=== PATIENT | female | born 1935 | race Caucasian/White ===

== ENCOUNTER 2017-02-21 10:55 | Inpatient (IN) | payer OTHER, MEDICAID ==
[~2017-02-21] VITALS: Ht 154.9 cm; Wt 62.2 kg
[~2017-02-21 10:55] MED LIST: ALENDRONAT70 MG/75 M PO; ARI10 PO; ARICEPT10 MG PO; BAY PO; CYCLOBENZAPRINE5 MG PO; ECO81 PO; FLOVENT DI100 MCG/A1 IH; FLUOXETINE40 MG PO; ISO10 PO; LIPI20 PO; NOR10 PO; NOR5 PO; PLA75 PO; PRI20 PO; PROAIR HFA8.5 GM IH; PROZ20 PO; TRE400 PO; ZES20 PO; ZESTRIL10 MG PO
[2017-02-21] MEDS ORDERED: HCTZ/LISINOPRIL1 TA2 PO (11:31)
[2017-02-21] MEDS ORDERED: PEPCID20 MG PO (11:33)
[2017-02-21] MEDS ORDERED: OXYBUTYNIN CHLOR5 MG PO (11:34)
[2017-02-21] MEDS ORDERED: CLONIDINE HCL0.1 MG PO (11:35)
[2017-02-21] MEDS ORDERED: VERAPAMIL HYDR240 MG PO (11:36)
[2017-02-21] MEDS ORDERED: TRAMADOL HCL50 MG PO (11:36)
[2017-02-21] MEDS ORDERED: ELOCON0.11 TOP (11:39)
[2017-02-21 12:43] LABS: BASOPHIL % 0.6 % (0-2)
[2017-02-21 12:55] LABS: RED CELL DISTRIBUTION WIDTH 15.6 % (11.5-14.5)
[2017-02-21 12:56] LABS: PLATELET COUNT 664 x10^3mcL (130-400)
[2017-02-21 13:07] LABS: CALCIUM 9.5 mg/dL (8.5-10.1); CARBON DIOXIDE 25.3 mmol/L (21-32); CHLORIDE SERUM 103 mmol/L (98-107); GLUCOSE SERUM 104 mg/dL (74-106); POTASSIUM SERUM 3.5 mmol/L (3.5-5.1); SODIUM SERUM 140 mmol/L (136-145)
[2017-02-21 13:11] LABS: ALKALINE PHOSPHATASE 67 U/L (46-116); ALT/SGPT 19 U/L (14-59); AST/SGOT 15 U/L (15-37); BILIRUBIN TOTAL 0.6 mg/dL (0.20-1.00); TOTAL PROTEIN, SERUM 7.3 g/dL (6.4-8.2)
[2017-02-21 13:12] LABS: ALBUMIN 2.6 g/dL (3.4-5.0)
[2017-02-21 15:05] VITALS: BP 213/67
[2017-02-21 15:44] LABS: T3 TOTAL 1.06 ng/mL
[2017-02-21 16:30] LABS: CHOLESTEROL/HDL RATIO 3.6; MAGNESIUM 1.5 mg/dL (1.8-2.4); PHOSPHOROUS 3.8 mg/dL (2.5-4.9)
[2017-02-21 17:00] VITALS: BP 158/69
[2017-02-21 20:10] LABS: FREE T4 1.7 ng/dL (0.76-1.46); FREE THYROXINE INDEX 3.7 ug/dL (1.4-4.5); T4(THYROXINE) 9.3 ug/dL (4.7-13.3)
[2017-02-21 21:15] VITALS: BP 121/51
[2017-02-22 05:49] VITALS: BP 118/64
[2017-02-22 07:26] LABS: RED CELL DISTRIBUTION WIDTH 15.8 % (11.5-14.5)
[2017-02-22 07:27] LABS: PLATELET COUNT 577 x10^3mcL (130-400)
[2017-02-22 07:36] LABS: CALCIUM 8.6 mg/dL (8.5-10.1); CARBON DIOXIDE 26.7 mmol/L (21-32); CHLORIDE SERUM 104 mmol/L (98-107); CREATININE SERUM 1.3 mg/dL (0.6-1.0); GLUCOSE SERUM 112 mg/dL (74-106); MAGNESIUM 2.4 mg/dL (1.8-2.4); POTASSIUM SERUM 3.5 mmol/L (3.5-5.1); SODIUM SERUM 139 mmol/L (136-145)
[2017-02-22 09:47] VITALS: BP 145/54
[2017-02-22 14:54] VITALS: BP 118/49
[2017-02-22 16:41] VITALS: BP 111/43
[2017-02-22 22:10] VITALS: BP 116/46
[2017-02-23 06:01] VITALS: BP 108/46
[2017-02-23 06:30] VITALS: BP 140/54
[2017-02-23 06:31] LABS: BASOPHIL % 1.1 % (0-2)
[2017-02-23 06:53] LABS: PLATELET COUNT 466 x10^3mcL (130-400); RED CELL DISTRIBUTION WIDTH 15.9 % (11.5-14.5)
[2017-02-23 07:06] LABS: CALCIUM 8.2 mg/dL (8.5-10.1); CARBON DIOXIDE 25.3 mmol/L (21-32); CHLORIDE SERUM 105 mmol/L (98-107); CREATININE SERUM 1.6 mg/dL (0.6-1.0); GLUCOSE SERUM 109 mg/dL (74-106); MAGNESIUM 1.9 mg/dL (1.8-2.4); PHOSPHOROUS 5.3 mg/dL (2.5-4.9); POTASSIUM SERUM 3.4 mmol/L (3.5-5.1); SODIUM SERUM 140 mmol/L (136-145)
[2017-02-23 10:18] VITALS: BP 110/59
[2017-02-23 16:53] VITALS: BP 134/50
[2017-02-23 18:40] LABS: UA SPECIFIC GRAVITY >=1.030 (1.005-1.035); microscopic required? YES; urine erythrocyte TRACE (NEGATIVE)
[2017-02-23 18:52] LABS: AMPHETAMINE QUAL UR NONE DETECTED (NEG <=1000)
[2017-02-23 21:50] VITALS: BP 141/69
[2017-02-24 17:15] VITALS: BP 203/92
[2017-02-24 18:25] LABS: CALCIUM 8.7 mg/dL (8.5-10.1); CARBON DIOXIDE 25.6 mmol/L (21-32); CHLORIDE SERUM 102 mmol/L (98-107); CREATININE SERUM 1.3 mg/dL (0.6-1.0); GLUCOSE SERUM 100 mg/dL (74-106); POTASSIUM SERUM 3.3 mmol/L (3.5-5.1); SODIUM SERUM 138 mmol/L (136-145)
[2017-02-24 18:30] LABS: BASOPHIL % 1.2 % (0-2); PLATELET COUNT 325 x10^3mcL (130-400)
[2017-02-24 18:32] LABS: RED CELL DISTRIBUTION WIDTH 16.1 % (11.5-14.5)
[2017-02-24 21:30] VITALS: BP 151/74
[2017-02-25 04:28] LABS: BASOPHIL % 1.2 % (0-2); PLATELET COUNT 332 x10^3mcL (130-400)
[2017-02-25 04:36] LABS: CALCIUM 8.6 mg/dL (8.5-10.1); CARBON DIOXIDE 26.6 mmol/L (21-32); CHLORIDE SERUM 102 mmol/L (98-107); CREATININE SERUM 1.3 mg/dL (0.6-1.0); GLUCOSE SERUM 93 mg/dL (74-106); POTASSIUM SERUM 3.3 mmol/L (3.5-5.1); SODIUM SERUM 139 mmol/L (136-145)
[2017-02-25 04:39] LABS: RED CELL DISTRIBUTION WIDTH 16.1 % (11.5-14.5)
[2017-02-25 05:30] VITALS: BP 138/55
[2017-02-25 05:57] VITALS: BP 151/74
[2017-02-25 11:06] VITALS: BP 193/78
[2017-02-25 17:01] VITALS: BP 130/57
[2017-02-25 19:30] VITALS: BP 101/50
[2017-02-26 05:14] LABS: BASOPHIL % 0.7 % (0-2); PLATELET COUNT 269 x10^3mcL (130-400)
[2017-02-26 05:16] LABS: CALCIUM 7.6 mg/dL (8.5-10.1); CARBON DIOXIDE 25.8 mmol/L (21-32); CHLORIDE SERUM 102 mmol/L (98-107); CREATININE SERUM 1.6 mg/dL (0.6-1.0); GLUCOSE SERUM 110 mg/dL (74-106); PHOSPHOROUS 5.4 mg/dL (2.5-4.9); POTASSIUM SERUM 3.4 mmol/L (3.5-5.1); SODIUM SERUM 135 mmol/L (136-145)
[2017-02-26 05:17] LABS: RED CELL DISTRIBUTION WIDTH 16.3 % (11.5-14.5)
[2017-02-26 08:51] VITALS: BP 115/48
[2017-02-26 17:42] VITALS: BP 174/70
[2017-02-26 18:05] VITALS: BP 162/53
[2017-02-26 18:07] LABS: BASOPHIL % 0.5 % (0-2); PLATELET COUNT 299 x10^3mcL (130-400)
[2017-02-26 18:09] LABS: RED CELL DISTRIBUTION WIDTH 16.2 % (11.5-14.5)
[2017-02-26 18:48] VITALS: BP 139/59
[2017-02-26 21:00] VITALS: BP 121/50
[2017-02-27 06:03] VITALS: BP 141/61
[2017-02-27 07:35] LABS: BASOPHIL % 0.6 % (0-2); PLATELET COUNT 293 x10^3mcL (130-400)
[2017-02-27 07:41] LABS: RED CELL DISTRIBUTION WIDTH 16.4 % (11.5-14.5)
[2017-02-27 07:49] LABS: CALCIUM 8.4 mg/dL (8.5-10.1); CARBON DIOXIDE 24.3 mmol/L (21-32); CHLORIDE SERUM 103 mmol/L (98-107); CREATININE SERUM 1.5 mg/dL (0.6-1.0); GLUCOSE SERUM 97 mg/dL (74-106); SODIUM SERUM 137 mmol/L (136-145)
[2017-02-27 07:51] VITALS: BP 154/60
[2017-02-27] MEDS ORDERED: LAC PO (10:19)
[2017-02-27] MEDS ORDERED: NEU100 PO (10:20)
[2017-02-27] MEDS ORDERED: ECO81 PO (10:21)
[2017-02-27 13:40] VITALS: BP 106/48
[2017-02-27 17:23] VITALS: BP 115/61
[2017-02-27 19:30] VITALS: BP 127/40
[2017-02-28 07:44] LABS: CALCIUM 7.8 mg/dL (8.5-10.1); CARBON DIOXIDE 23.5 mmol/L (21-32); CHLORIDE SERUM 106 mmol/L (98-107); CREATININE SERUM 1.4 mg/dL (0.6-1.0); GLUCOSE SERUM 93 mg/dL (74-106); POTASSIUM SERUM 3.9 mmol/L (3.5-5.1); SODIUM SERUM 138 mmol/L (136-145)
[2017-02-28 07:51] LABS: PLATELET COUNT 211 x10^3mcL (130-400)
[2017-02-28 07:58] LABS: RED CELL DISTRIBUTION WIDTH 16.3 % (11.5-14.5)
[2017-02-28 10:31] VITALS: BP 140/63
[2017-02-28 11:05] LABS: BAND NEUTROPHIL 5 % (0-10); MONOCYTE 4 % (0-7); SEGMENTED NEUTROPHILS 71 % (37-75); rbc morphology (normal/abnorm) NORMAL (NORMAL)
[2017-02-28 13:52] VITALS: BP 164/74
[2017-02-28 16:39] VITALS: BP 155/78
[2017-02-28 18:39] VITALS: BP 155/78
[2017-02-28] MEDS ORDERED: LAC PO (19:25)
[2017-02-28] MEDS ORDERED: Levofloxacin IV (19:28)
== END 2017-02-28 20:19 | DRG 602 ==
LOC: ED 10:55 → DU 13:53 → MU 02-24 07:29 → DU 02-24 19:32
PROVIDERS: Emergency Medicine; Family Medicine; Student in an Organized Health Care Education/Training Program
DX: L03.115 Cellulitis of right lower limb (principal); E43 Unspecified severe protein-calorie malnutrition; I21.A1 Myocardial infarction type 2; N17.0 Acute kidney failure with tubular necrosis; E87.1 Hypo-osmolality and hyponatremia; D68.69 Other thrombophilia; E11.42 Type 2 diabetes mellitus with diabetic polyneuropathy; E11.65 Type 2 diabetes mellitus with hyperglycemia; E11.51 Type 2 diabetes mellitus with diabetic peripheral angiopathy without gangrene; E86.0 Dehydration; I16.0 Hypertensive urgency; D64.9 Anemia, unspecified; N32.81 Overactive bladder; K21.9 Gastro-esophageal reflux disease without esophagitis; G30.9 Alzheimer's disease, unspecified; F02.80 Dementia in other diseases classified elsewhere, unspecified severity, without behavioral disturbance, psychotic disturbance, mood disturbance, and anxiety; F32.9 Major depressive disorder, single episode, unspecified; I25.10 Atherosclerotic heart disease of native coronary artery without angina pectoris; E87.6 Hypokalemia; E83.42 Hypomagnesemia; E83.39 Other disorders of phosphorus metabolism; Z96.651 Presence of right artificial knee joint; Z87.891 Personal history of nicotine dependence; Z68.25 Body mass index [BMI] 25.0-25.9, adult
CPT/HCPCS: 82962; 83880; 84439; 97110-GP; 97116-GP; 97530-GP; A9500; J0360; J1644; J1956; J2270; J2405; J2785; J3370; J3475; J3490; J7030; J7620; J8597; Q0092

== ENCOUNTER 2019-03-20 13:42 | Inpatient (IN) | payer OTHER, MEDICAID ==
[~2019-03-20] VITALS: Ht 154.9 cm; Wt 67.7 kg
[~2019-03-20 13:42] MED LIST changes: +CLONIDINE HCL0.1 MG PO; +ELOCON0.11 TOP; +HCTZ/LISINOPRIL1 TA2 PO; +LAC PO; +Levofloxacin IV; +NEU100 PO; +OXYBUTYNIN CHLOR5 MG PO; +PEPCID20 MG PO; +TRAMADOL HCL50 MG PO; +VERAPAMIL HYDR240 MG PO
[2019-03-20 14:25] LABS: BASOPHIL % 0.2 % (0-2); PLATELET COUNT 357 x10^3mcL (130-400)
[2019-03-20 14:27] LABS: RED CELL DISTRIBUTION WIDTH 15.3 % (11.5-14.5)
[2019-03-20 14:41] LABS: AST/SGOT 18 U/L (15-37); BILIRUBIN TOTAL 0.4 mg/dL (0.20-1.00); CARBON DIOXIDE 33.4 mmol/L (21-32); CHLORIDE SERUM 102 mmol/L (98-107); CREATININE SERUM 1.1 mg/dL (0.6-1.0); GLUCOSE SERUM 132 mg/dL (74-106); POTASSIUM SERUM 4.1 mmol/L (3.5-5.1); SODIUM SERUM 141 mmol/L (136-145); TOTAL PROTEIN, SERUM 6.1 g/dL (6.4-8.2)
[2019-03-20 14:42] LABS: ALKALINE PHOSPHATASE 70 U/L (46-116); ALT/SGPT 57 U/L (14-59)
[2019-03-20 15:04] LABS: CK-MB 1.5 ng/mL (0-3.6)
[2019-03-20 15:37] LABS: microscopic required? YES; urine erythrocyte NEGATIVE (NEGATIVE)
[2019-03-20 16:01] LABS: AMPHETAMINE QUAL UR NONE DETECTED (See below)
[2019-03-20] MEDS ORDERED: HYDRALAZINE HCL50 MG PO (18:15)
[2019-03-20] MEDS ORDERED: ARICEPT10 MG PO (18:15)
[2019-03-20] MEDS ORDERED: FENOFIBRATE50 MG PO (18:16)
[2019-03-20] MEDS ORDERED: DRAMAMINE LESS25 MG PO (18:16)
[2019-03-20] MEDS ORDERED: FLUOXETINE40 MG PO (18:17)
[2019-03-20] MEDS ORDERED: PROTONIX40 MG/Pac1 PO (18:18)
[2019-03-20] MEDS ORDERED: ADALAT CC60 MG PO (18:18)
[2019-03-20 19:00] LABS: CHOLESTEROL/HDL RATIO 3.2
[2019-03-20 19:08] VITALS: BP 144/68
[2019-03-20 19:19] VITALS: Ht 154.9 cm; Wt 67.7 kg
[2019-03-20 20:36] VITALS: BP 142/64
[2019-03-21 05:37] VITALS: BP 121/58
[2019-03-21 08:27] VITALS: BP 124/64
[2019-03-21 12:43] VITALS: BP 122/56
[2019-03-21 16:14] VITALS: BP 98/53
[2019-03-21 17:23] LABS: PLATELET COUNT 307 x10^3mcL (130-400)
[2019-03-21 17:27] LABS: BASOPHIL % 0 % (0-2); RED CELL DISTRIBUTION WIDTH 15.4 % (11.5-14.5)
[2019-03-21 17:35] LABS: CALCIUM 8.9 mg/dL (8.5-10.1); CARBON DIOXIDE 34.5 mmol/L (21-32); CHLORIDE SERUM 102 mmol/L (98-107); CREATININE SERUM 1.3 mg/dL (0.6-1.0); GLUCOSE SERUM 95 mg/dL (74-106); POTASSIUM SERUM 4.5 mmol/L (3.5-5.1); SODIUM SERUM 139 mmol/L (136-145)
[2019-03-21 19:36] VITALS: BP 128/58
[2019-03-22 05:16] VITALS: BP 123/71
[2019-03-22 07:40] LABS: CALCIUM 9.4 mg/dL (8.5-10.1); CARBON DIOXIDE 29.8 mmol/L (21-32); CHLORIDE SERUM 101 mmol/L (98-107); CREATININE SERUM 1.2 mg/dL (0.6-1.0); GLUCOSE SERUM 88 mg/dL (74-106); POTASSIUM SERUM 3.9 mmol/L (3.5-5.1); SODIUM SERUM 139 mmol/L (136-145)
[2019-03-22 08:01] LABS: BASOPHIL % 0.4 % (0-2); PLATELET COUNT 300 x10^3mcL (130-400)
[2019-03-22 08:55] VITALS: BP 153/72
[2019-03-22 12:44] VITALS: BP 118/55
[2019-03-22] MEDS ORDERED: PLAVIX75 M1 PO (15:32)
[2019-03-22] MEDS ORDERED: GOOD NEIGHBOR M25 MG PO (15:33)
[2019-03-22] MEDS ORDERED: ASPIR 8181 MG PO (15:33)
[2019-03-22] MEDS ORDERED: METOPROLOL TART25 M1 PO (15:34)
[2019-03-22] MEDS ORDERED: ACIDOPHILUS1 EAC1 PO (15:34)
[2019-03-22] MEDS ORDERED: ISOSORBIDE DINI30 M2 PO (15:35)
[2019-03-22] MEDS ORDERED: NITROGLYCERIN0.4 MG SL (15:36)
[2019-03-22] MEDS ORDERED: ZESTRIL10 MG PO (15:36)
[2019-03-22] MEDS ORDERED: ATORVASTATIN CA20 M1 PO (15:36)
[2019-03-22] MEDS ORDERED: ACETAMINOPHEN650 M6 PO (15:36)
[2019-03-22] MEDS ORDERED: LASIX40 MG PO (15:37)
[2019-03-22] MEDS ORDERED: KLOR-CON 1010 MEQ PO (15:37)
== END 2019-03-22 17:10 | disposition short-term general hospital (02) | DRG 280 ==
LOC: ED 13:42 → DU 16:54
PROVIDERS: Emergency Medicine; Internal Medicine Pulmonary Disease; ADMIT Internal Medicine Pulmonary Disease
DX: I21.4 Non-ST elevation (NSTEMI) myocardial infarction (principal); I63.9 Cerebral infarction, unspecified; J98.11 Atelectasis; F32.9 Major depressive disorder, single episode, unspecified; I35.0 Nonrheumatic aortic (valve) stenosis; I11.9 Hypertensive heart disease without heart failure; G40.909 Epilepsy, unspecified, not intractable, without status epilepticus; R42 Dizziness and giddiness; F03.90 Unspecified dementia, unspecified severity, without behavioral disturbance, psychotic disturbance, mood disturbance, and anxiety; Z79.82 Long term (current) use of aspirin; Z68.28 Body mass index [BMI] 28.0-28.9, adult; Z87.891 Personal history of nicotine dependence; Z86.73 Personal history of transient ischemic attack (TIA), and cerebral infarction without residual deficits
CPT/HCPCS: 83880; G0378; G0480; J1644; J8597; Q0092